=== PATIENT | female | born 1960 | race Hispanic/Latino ===

== ENCOUNTER 2017-07-19 08:35 | Day surgery (SDC) | payer MEDICAID ==
--- NOTE | 2017-07-19 08:09 | Anesthesia Consultation ---
Anesthesia Consult and Med Hx Date of service: 07/19/17 - Airway Anesthetic Teeth Evaluation: Edentulous ROM Head & Neck: Adequate Mental/Hyoid Distance: Adequate Mallampati Class: Class II Intubation Access Assessment: Probably Good - Pulmonary Exam CTA: No (exp wheeze, albuterol txt ordered ) - Cardiac Exam Cardiac Exam: RRR - Pre-Operative Health Status ASA Pre-Surgery Classification: ASA3 Proposed Anesthetic Plan: MAC - Pulmonary Hx Smoking: Yes (Ex smoker ) COPD: Yes (resolved ) Hx Sleep Apnea: Yes (resolved ) - Gastrointestinal Hx Ulcer: Yes Hx Gastroesophageal Reflux Disease: Yes - Endocrine Hx Non-Insulin Dependent Diabetes: Yes (resolved ) Hx Hypothyroidism: Yes
--- NOTE | 2017-07-19 08:09 | Anesthesia Day of Surgery ---
Anesthesia Day of Surgery - Day of Surgery Patient Examined: Yes Patient H&P Reviewed: Yes Patient is NPO: Yes
--- NOTE | 2017-07-19 08:33 | Discharge Summary ---
Providers - Providers Attending physician: DEWEY BEGUM Hospitalization Condition: Good Procedures: egd Hospital course: 56 y.o. F with hx of lap gastric bypass, in 2012 presented for egd for eval for abdominal pain. She tolerated the procedure well. She was discharged home. She will have omeprazole and carafate called into her pharm. Disposition: TO HOME OR SELFCARE Core Measure Documentation - Palliative Care Palliative Care/ Comfort Measures: Not Applicable - Core Measures Any of the following diagnoses?: none Exam - Physical Exam Narrative exam: no changes from prior Plan Activity: no restrictions Additional Instructions: follow up in Dr. Rodriguez office.
[~2017-07-19 08:35] MED LIST: DILAUDID ONE; DIPRIVAN 10 MG/ML IV ONE; HURRICAINE ONE 20% TOPICAL SPRAY MM; NACL 0.9% 1000 ML 1,000 ML IV SCH; PROVENTIL IH ONE; WATER FOR IRRIG STERILE IR ONE; XYLOCAINE 1% 20 mL ONE; ZOFRAN ONE
--- NOTE | 2017-07-19 08:37 | Operative Report ---
Operative Report Operative Report: EGD Post bypass DATE: 07/19/17 OPERATIVE REPORT - EGD PREOP DIAGNOSIS: gastric dyspepsia, epgastric pain POSTOP DIAGNOSIS: same SURGERY: Upper endoscopy. SURGEON: Dr. Ellis Robertson MOTOR COACH CHAUFFEUR: Francisca Dan M.D. TYPE OF ANESTHESIA: MAC. ESTIMATED BLOOD LOSS: None. COMPLICATIONS: None. SPECIMENS REMOVED: None. FINDINGS: 1. normal esophagus 2. gastric pouch - 60ml 3. gastrojejunal anastomosis is 20 0mm 4. Large marginal ulcer on Jejunal side. INDICATIONS:INDICATION FOR PROCEDURE: Patient is a 56-year-old F s/p gastric bypass in 2012. The patient is here today for evaluation for epigastric pain. Several months prior she had an EGD by her GI doctor. Her GI doctor told her she had a large marginal ulcer. She was previously taking carafate and omeprazole but is not at this time. surgery. PROCEDURE DETAILS: After consent was reviewed, patient was taken back to the operating room where patient was placed in the left lateral decubitus position and a bite block was placed in the mouth. After a time-out was called, MAC anesthesia was initiated. I then passed the endoscope into the patients oropharynx, into the esophagus, visualized the entire esophagus, which was all within normal limits. I then visualized the gastric pouch which was large and about 60ml in size. The gastrojejunal anastomosis was normal at about 20mm. The proximal portion of the vishal limb was showed a large marginal ulcer on the Jejunal side that covered approx. 1/3 of the wall. I then desufflated the gastric pouch and removed the endoscope. Patient tolerated procedure well and was transferred to recovery room in good and stable condition
[2017-07-19 09:47] VITALS: BP 119/79
[2017-07-19] MEDS ORDERED: WATER FOR IRRIG STERILE IR ONE (13:08)
--- NOTE | 2017-07-19 14:15 | Post Anesthesia Evaluation ---
- Post Anesthesia Evaluation Patient Participated: Yes Airway Patent: Yes Stable Respiratory Function: Yes Nausea/Vomiting: No Temp > 96.8F: Yes Pain Manageable: Yes Adequeate Hydration: Yes Anesthesia Complications: No
== END 2017-07-19 08:36 | disposition home or self-care (01) ==
LOC: GIO 08:35
PROVIDERS: ATTEND Specialist
DX: K28.9 Gastrojejunal ulcer, unspecified as acute or chronic, without hemorrhage or perforation (principal); J44.9 Chronic obstructive pulmonary disease, unspecified; K21.9 Gastro-esophageal reflux disease without esophagitis; K31.89 Other diseases of stomach and duodenum; E03.9 Hypothyroidism, unspecified; E11.9 Type 2 diabetes mellitus without complications; Z98.84 Bariatric surgery status; Z90.49 Acquired absence of other specified parts of digestive tract; Z96.651 Presence of right artificial knee joint; Z87.891 Personal history of nicotine dependence
CPT/HCPCS: 43235; J1170; J2405; J2704; J7030

== ENCOUNTER 2018-02-14 07:42 | Day surgery (SDC) | payer MEDICAID ==
[2018-02-14] MEDS ORDERED: WATER FOR IRRIG STERILE IR ONE (08:48)
[2018-02-14] MEDS ORDERED: DIPRIVAN 10 MG/ML IV ONE (08:58)
[2018-02-14] MEDS ORDERED: VERSED ONE (08:58)
[2018-02-14] MEDS ORDERED: PROVENTIL IH ONE (08:58)
--- NOTE | 2018-02-14 09:08 | Anesthesia Consultation ---
Anesthesia Consult and Med Hx Date of service: 02/14/18 - Airway Anesthetic Teeth Evaluation: Edentulous ROM Head & Neck: Adequate Mental/Hyoid Distance: Adequate Mallampati Class: Class I Intubation Access Assessment: Good - Pulmonary Exam CTA: No (upper left insp wheeze, barry lower rhonchii. Albuterol ordered ) - Cardiac Exam Cardiac Exam: RRR - Pre-Operative Health Status ASA Pre-Surgery Classification: ASA3 Proposed Anesthetic Plan: MAC - Pulmonary Hx Smoking: Yes (quit 2012) COPD: Yes Hx Sleep Apnea: Yes (resolved) - Gastrointestinal Hx Ulcer: Yes Hx Gastroesophageal Reflux Disease: Yes - Endocrine Hx Non-Insulin Dependent Diabetes: Yes (resolved ) Hx Hypothyroidism: Yes - Other Systems Hx Obesity: Yes - Additional Comments Anesthesia Medical History Comments: leg swelling
--- NOTE | 2018-02-14 09:08 | Anesthesia Day of Surgery ---
Anesthesia Day of Surgery - Day of Surgery Patient Examined: Yes Patient H&P Reviewed: Yes Patient is NPO: Yes
[2018-02-14] MEDS ORDERED: ZOFRAN ONE (09:59)
[2018-02-14] MEDS ORDERED: NACL 0.9% 1000 ML 1,000 ML IV SCH (10:00)
[2018-02-14 12:01] VITALS: BP 112/69
--- NOTE | 2018-02-14 13:14 | Operative Report ---
PREPROCEDURAL DIAGNOSES: 1. Epigastric abdominal pain, nausea and vomiting, dyspepsia, and dysphagia. 2. The patient has abdominal pain and status post bypass and revision. POSTOPERATIVE DIAGNOSES: Mild gastritis of the gastric pouch with no evidence of any active ulcer. The anastomosis is 10 mm in size, the pouch size is around about 40 mL and there are no other abnormalities seen. DESCRIPTION OF PROCEDURE: The patient was placed on the table in the dorsal supine position and following satisfactory induction of MAC anesthesia, the patient was then placed in the left lateral decubitus position and the scope passed into the posterior oropharynx after she was sedated. It was passed through the posterior oropharynx and into the upper, mid and lower esophagus and into the gastric pouch. The gastric pouch showed some evidence of some old gastritis, but the pouch size was not well, which was about 40 mL and the anastomosis about 40mm. We passed the scope into the small bowel. There was no evidence of any ulceration. The cause of the patient's severe abdominal pain was not found during this examination. We then desufflated the GI tract. Scope was removed from the patient's oropharynx. The patient tolerated the procedure well and sent back to recovery room in satisfactory condition. NOTE: The patient may need to have a diagnostic laparoscopy to discern the cause of her pain. [facility]# [id number] SYLVIE/MATTIE FRANCISCO
== END 2018-02-14 07:43 | disposition home or self-care (01) ==
LOC: GIO 07:42
PROVIDERS: ATTEND Specialist
DX: K29.60 Other gastritis without bleeding (principal); R10.13 Epigastric pain; J44.9 Chronic obstructive pulmonary disease, unspecified; M06.9 Rheumatoid arthritis, unspecified; E03.9 Hypothyroidism, unspecified; E11.9 Type 2 diabetes mellitus without complications; E66.9 Obesity, unspecified; Z68.32 Body mass index [BMI] 32.0-32.9, adult; Z88.8 Allergy status to other drugs, medicaments and biological substances; Z88.5 Allergy status to narcotic agent; Z79.899 Other long term (current) drug therapy; Z98.51 Tubal ligation status; Z87.891 Personal history of nicotine dependence; Z98.890 Other specified postprocedural states; Z90.49 Acquired absence of other specified parts of digestive tract
CPT/HCPCS: 43235; J2250; J2405; J2704; J7030